=== PATIENT | male | born 1950 ===

== ENCOUNTER 2025-01-28 12:37 | Outpatient (CLI) | payer BC ==
[2025-01-28 13:02] LABS: Estimated GFR - POC 64.0
== END 2025-01-28 12:38 | disposition home or self-care (01) ==
LOC: CT 12:37
PROVIDERS: ATTEND Urology
DX: C61 Malignant neoplasm of prostate (principal); R31.0 Gross hematuria; N40.1 Benign prostatic hyperplasia with lower urinary tract symptoms; K76.9 Liver disease, unspecified; N28.89 Other specified disorders of kidney and ureter
CPT/HCPCS: 36415; 74178; 82565